=== PATIENT | female | born 1955 | race Caucasian/White ===

== ENCOUNTER 2016-11-06 12:29 | Inpatient (IN) | payer BC, OTHER ==
[2016-11-06] MEDS ORDERED: KETOROLAC 60 MG/2 ML VIAL IM STA (13:26)
[2016-11-06] MEDS ORDERED: DIAZEPAM 5 MG TAB PO STA ×2 (13:27→14:01)
--- NOTE | 2016-11-06 13:39 | ED ---
General Adult HPI - General Source: patient, RN notes reviewed Mode of arrival: wheelchair Limitations: no limitations <Yariel Siegel - Last Filed: 11/06/16 15:32> <Raz Delgado - Last Filed: 11/07/16 01:38> - General Chief complaint: Fall Stated complaint: IHS-Fall Time Seen by Provider: 11/06/16 13:10 - History of Present Illness Initial comments: Patient's a 61-year-old female who presents emergency room today with chief complaint of a fall that occurred just prior to arrival. She does admit that she was opening up a heavy metal door at the local school gym when on the other side there was a stepdown she missed falling down onto the right side. She does admit some pain to the right hip, lower back, and right knee. Patient states was no head injury or loss consciousness. She does admit that she's feeling some spasms coming from the right hip area shooting down her leg. She does admit to a history of herniated disc in her lower back. She denies any saddle anesthesia. Denies any bowel or bladder incontinence retention. Patient denies any recent fever, chills, shortness of breath, chest pain, abdominal pain , nausea or vomiting, numbness or tingling, dysuria or hematuria, constipation or diarrhea, headaches or visual changes, or any other complaints. (Yariel Siegel) - Related Data Home Medications Medication Instructions Recorded Confirmed Cholecalciferol [Vitamin D3] 3,000 tab PO DAILY 10/06/15 11/06/16 DULoxetine HCL [Cymbalta] 60 mg PO DAILY 10/06/15 11/06/16 Fluticasone/Salmeterol [Advair Hfa 2 puff INHALATION RT-BID 10/06/15 11/06/16 230-21 Mcg Inhaler] Levothyroxine Sodium [Synthroid] 175 mcg PO DAILY 10/06/15 11/06/16 Montelukast Sodium [Singulair] 10 mg PO HS 11/06/16 11/06/16 oxyCODONE HCL [OxyCONTIN] 20 mg PO TID 11/06/16 11/06/16 Allergies Allergy/AdvReac Type Severity Reaction Status Date / Time latex Allergy Rash/Hives Verified 11/06/16 15:40 codeine AdvReac Nausea & Verified 11/06/16 15:40 Vomiting Review of Systems ROS Other: All systems not noted in ROS Statement are negative. <Yariel Siegel - Last Filed: 11/06/16 15:32> ROS Other: All systems not noted in ROS Statement are negative. <Raz Delgado Ellis - Last Filed: 11/07/16 01:38> ROS Statement: Those systems with pertinent positive or pertinent negative responses have been documented in the HPI. Past Medical History Past Medical History: Asthma, Fibromyalgia, Sleep Apnea/CPAP/BIPAP, Thyroid Disorder Additional Past Medical History / Comment(s): Lupus, pain clinic, chronic back pain, arthritis History of Any Multi-Drug Resistant Organisms: None Reported Past Surgical History: Section, Hernia Repair, Orthopedic Surgery Additional Past Surgical History / Comment(s): bilateral knee growth surgery Past Psychological History: Anxiety Smoking Status: Former smoker Past Alcohol Use History: Occasional Past Drug Use History: None Reported <Yariel Siegel - Last Filed: 11/06/16 15:32> General Exam Limitations: no limitations <Yariel Siegel - Last Filed: 11/06/16 15:32> <Raz Delgado Ellis - Last Filed: 11/07/16 01:38> - General Exam Comments Initial Comments: General: The patient is awake and alert, in no distress, and does not appear acutely ill. Eye: Pupils are equal, round and reactive to light, extra-ocular movements are intact. No nystagmus. There is normal conjunctiva bilaterally. No signs of icterus. Ears, nose, mouth and throat: There are moist mucous membranes and no oral lesions. Neck: The neck is supple, there is no tenderness or JVD. Cardiovascular: There is a regular rate and rhythm. No murmur, rub or gallop is appreciated. Respiratory: Lungs are clear to auscultation, respirations are non-labored, breath sounds are equal. No wheezes, stridor, rales, or rhonchi. Gastrointestinal: Soft, non-distended, non-tender abdomen without masses or organomegaly noted. There is no rebound or guarding present. No CVA tenderness. Bowel sounds are unremarkable. Musculoskeletal: Small abrasion over the anterior aspect of the right knee. No deep tissue involvement. Shows good range of motion. Mild tenderness of the anterior aspect. Mildly tender over the lateral aspect of the right knee. No tenderness on the right ankle or foot. Mildly tender over the right lateral aspect of the hip. No tenderness midline of thoracic or lumbar spine. No step- offs forms appreciated. Strength 5/5. Sensation intact. Pulses equal bilaterally 2+. Neurological: A&O x 3. CN II-XII intact, There are no obvious motor or sensory deficits. Coordination appears grossly intact. Speech is normal. Skin: Skin is warm and dry and no rashes or lesions are noted. Psychiatric: Cooperative, appropriate mood & affect, normal judgment. (Yariel Siegel) Medical Decision Making <Yariel Siegel - Last Filed: 11/06/16 15:32> - Lab Data Result diagrams: 11/06/16 20:45 11/06/16 16:04 <Raz Delgado - Last Filed: 11/07/16 01:38> - Medical Decision Making X-rays reviewed and does show a femoral neck fracture on the right. Case was discussed with attending physician also patient at bedside. Case was discussed with orthopedic on-call doctor Estiven who will admit the patient and requested to stay nothing by mouth for possible repair tonight. Medicine will be consult for clearance. (Yariel Siegel) 61-year-old female with fall down one step onto her right side. X-ray does reveal a etc. femoral neck fracture. Patient will be admitted to orthopedic surgery for operative repair. (Raz Delgado) Disposition Time of Disposition: 15:33 <Yariel Siegel - Last Filed: 11/06/16 15:32> <Raz Delgado - Last Filed: 11/07/16 01:38> Clinical Impression: Hip fracture Disposition: ADMITTED IP TO THIS HOSP Condition: Good Addendum entered and electronically signed by Yariel Siegel PA-C 11/06/16 16: 18: EKG performed at 1614: A 12-lead EKG was performed and interpreted by me as showing the following: Rate is 75, and rhythm is normal sinus. There are normal QRS complexes and normal R-wave progression. ST segments have no elevation or depression, and CA segments appear normal.
--- NOTE | 2016-11-06 14:43 | XR ---
EXAMINATION TYPE: XR knee limited RT DATE OF EXAM: 11/06/2016 COMPARISON: NONE HISTORY: Pain TECHNIQUE: Two views are submitted. FINDINGS: Joint spaces are preserved. Osseous structures are intact. No acute fracture seen. IMPRESSION: 1. No acute fracture or dislocation.
--- NOTE | 2016-11-06 14:46 | XR ---
EXAMINATION TYPE: XR Hip RT and AP Pelvis DATE OF EXAM: 11/06/2016 COMPARISON: NONE HISTORY: Pain TECHNIQUE: A single AP view of the pelvis is obtained. Two views of the right hip are obtained. FINDINGS: Calcifications in pelvis are likely vascular. Sclerosis involving the left SI joint likel y related to sacroiliitis. Two views of right hip show focal lytic or sclerotic lesion seen in the proximal right femur. The o verlying soft tissue is unremarkable. Nonspherical morphology to the femoral head. Findings are sugg estive of a linear lucency and cortical disruption along the femoral neck. IMPRESSION: 1. Findings are suggestive of a right femoral neck fracture
--- NOTE | 2016-11-06 14:47 | XR ---
EXAM TYPE: LUMBAR SPINE X RAY SERIES COMPARISON: NONE HISTORY: Back pain TECHNIQUE: 4 views are submitted. FINDINGS: Alignment is anatomic. The pedicles are intact. The transverse processes are intact. There is no s pondylolysis or spondylolisthesis. Diffuse osteopenia noted. Facet arthropathy L4-5 and L5-S1. IMPRESSION: 1. No acute process.
[2016-11-06] MEDS ORDERED: SODIUM CHLORIDE 0.9% 1,000 ML IV STA (15:06)
[2016-11-06] MEDS ORDERED: ONDANSETRON 4 MG/2 ML VIAL IVP STA (15:06)
[2016-11-06] MEDS ORDERED: HYDROmorphone 1 MG/ML 1 ML SYRINGE IVP STA (15:06)
[2016-11-06] MEDS ORDERED: NALOXONE 0.4 MG/ML 1 ML VIAL IV PRN ×2 (15:34→19:40)
[2016-11-06] MEDS ORDERED: ONDANSETRON 4 MG/2 ML VIAL IVP PRN (15:34)
[2016-11-06] MEDS ORDERED: SODIUM CHLORIDE 0.9% 1,000 ML IV ONE (15:34)
[2016-11-06] MEDS ORDERED: HYDROmorphone 1 MG/ML 1 ML SYRINGE IV PRN (15:34)
--- NOTE | 2016-11-06 16:14 | XR ---
EXAMINATION TYPE: XR chest 1V DATE OF EXAM: 11/06/2016 COMPARISON: 08/02/2013 HISTORY: 61-year-old female preop clearance for hip fracture. Pain. TECHNIQUE: Single frontal view of the chest is obtained. FINDINGS: Heart is upper limits of normal in size. Aorta and pulmonary vasculature within normal limits. Some s trandy atelectasis in the lower lungs. No consolidation or pleural effusion. IMPRESSION: No acute cardiopulmonary process. Heart at the upper limits of normal in size.
[2016-11-06 16:21] LABS: Basophils % (A) 0 %; CH 27.7; CHCM 33.3; Eosinophils # (A) 0.1 k/uL (0-0.7); Eosinophils % (A) 0 %; HCT 38.9 % (34.0-46.0); HDW 2.37; HGB 13.6 gm/dL (11.4-16.0); Luc # (Auto) 0.11; Luc % (Auto) 1; Lymphocytes # (A) 1.8 k/uL (1.0-4.8); Lymphocytes % (A) 14 %; MCH 29.3 pg (25.0-35.0); MCHC 35.1 g/dL (31.0-37.0); MCV 83.6 fL (80.0-100.0); Mean Platelet Volume 7.5; Monocytes # (A) 0.5 k/uL (0-1.0); Monocytes % (A) 4 %; Neutrophils # (A) 10.2 k/uL (1.3-7.7); Neutrophils % (A) 80 %; RBC 4.65 m/uL (3.80-5.40); RDW 13.7 % (11.5-15.5); WBC 12.7 k/uL (3.8-10.6); WBC (Perox) 12.05
[2016-11-06 16:25] LABS: INR 0.9 (<1.1); Partial Thromboplastin Time 24.4 sec (22.0-30.0); Prothrombin Time 9.6 sec (9.0-12.0)
[2016-11-06 16:27] LABS: ALT 63 U/L (9-52); AST 44 U/L (14-36); Alkaline Phosphatase 140 U/L (38-126); Anion Gap 12 mmol/L; Blood Urea Nitrogen 18 mg/dL (7-17); Calcium 9.6 mg/dL (8.4-10.2); Carbon Dioxide 27 mmol/L (22-30); Chloride 102 mmol/L (98-107); Glucose 111 mg/dL (74-99); Non-African American GFR(MDRD) >60 (>60 ml/min/1.73 sqM); Potassium 4.3 mmol/L (3.5-5.1); Sodium 141 mmol/L (137-145); Total Bilirubin 0.4 mg/dL (0.2-1.3); Total Protein 7.3 g/dL (6.3-8.2)
[2016-11-06] MEDS ORDERED: MAGNESIUM HYDROXIDE 2,400 MG/10 ML CUP PO PRN (16:44)
[2016-11-06] MEDS ORDERED: DIAZEPAM 5 MG TAB PO PRN (16:44)
[2016-11-06] MEDS ORDERED: HYDROmorphone 1 MG/ML 1 ML SYRINGE IVP PRN ×2 (16:44)
[2016-11-06] MEDS ORDERED: TEMAZEPAM 15 MG CAP PO PRN (16:44)
[2016-11-06] MEDS ORDERED: hydrOXYzine PAMOATE 25 MG CAP PO PRN (16:44)
--- NOTE | 2016-11-06 16:57 | P.HPOR ---
History of Present Illness H&P Date: 11/06/16 Chief Complaint: Right hip fracture Patient presented to the ER this afternoon after a fall in the gymnasium at school in [place]. She had misstepped and fell to her right side. She developed right hip pain and difficulty with ambulating after her fall. X-rays in the emergency department showed a minimal to nondisplaced subcapital femoral neck fracture on the right. She has pain in the right hip as expected but no other new acute complaints. She has a history of back problems where she was treated through pain management and a history of thyroid disorder which is treated for but has no other met past medical history that she relates. She is currently denying new numbness or tingling, calf pain, fever, chills, chest pain, shortness breath, nausea, vomiting, dizziness, headaches, loss of consciousness , slurred speech or other. Review of Systems All systems: negative Constitutional: Denies chills, Denies fever Eyes: denies blurred vision, denies pain Ears, nose, mouth and throat: Denies headache, Denies sore throat Cardiovascular: Denies chest pain, Denies shortness of breath Respiratory: Denies cough Gastrointestinal: Denies abdominal pain, Denies diarrhea, Denies nausea, Denies vomiting Genitourinary: Denies dysuria, Denies hematuria Musculoskeletal: Denies myalgias Integumentary: Denies pruritus, Denies rash Neurological: Denies numbness, Denies weakness Psychiatric: Denies anxiety, Denies depression Endocrine: Denies fatigue, Denies weight change Past Medical History Past Medical History: Asthma, Fibromyalgia, Sleep Apnea/CPAP/BIPAP, Thyroid Disorder Additional Past Medical History / Comment(s): Lupus, pain clinic, chronic back pain, arthritis History of Any Multi-Drug Resistant Organisms: None Reported Past Surgical History: Section, Hernia Repair, Orthopedic Surgery Additional Past Surgical History / Comment(s): bilateral knee growth surgery Past Psychological History: Anxiety Smoking Status: Former smoker Past Alcohol Use History: Occasional Past Drug Use History: None Reported Medications and Allergies Home Medications Medication Instructions Recorded Confirmed Type Cholecalciferol [Vitamin D3] 3,000 tab PO DAILY 10/06/15 11/06/16 History DULoxetine HCL [Cymbalta] 60 mg PO DAILY 10/06/15 11/06/16 History Fluticasone/Salmeterol [Advair Hfa 2 puff INHALATION RT-BID 10/06/15 11/06/16 History 230-21 Mcg Inhaler] Levothyroxine Sodium [Synthroid] 175 mcg PO DAILY 10/06/15 11/06/16 History Montelukast Sodium [Singulair] 10 mg PO HS 11/06/16 11/06/16 History oxyCODONE HCL [OxyCONTIN] 20 mg PO TID 11/06/16 11/06/16 History Allergies Allergy/AdvReac Type Severity Reaction Status Date / Time latex Allergy Rash/Hives Verified 11/06/16 15:40 codeine AdvReac Nausea & Verified 11/06/16 15:40 Vomiting Physical Examination Inspection of the right lower extremity is benign. There is no open wounds or lacerations. There is no erythema. Neurovascular status is intact with motor and sensation throughout the right lower extremity. Range of motion of right hip is not tested due to the fracture. Calf is soft and nontender. 2+ dorsalis pedis pulses present as well as less than 2 second cap refill. Results - Labs Labs: Abnormal Lab Results - Last 24 Hours (Table) 11/06/16 11/06/16 Range/Units 16:04 16:04 WBC 12.7 H (3.8-10.6) k/uL Neutrophils # 10.2 H (1.3-7.7) k/uL BUN 18 H (7-17) mg/dL Glucose 111 H (74-99) mg/dL AST 44 H (14-36) U/L ALT 63 H (9-52) U/L Alkaline Phosphatase 140 H (38-126) U/L H & H 11/06/16 Range/Units 16:04 Hgb 13.6 (11.4-16.0) gm/dL Hct 38.9 (34.0-46.0) % Coagulation 11/06/16 Range/Units 16:04 INR 0.9 (<1.1) Result Diagrams: 11/06/16 16:04 11/06/16 16:04 - Diagnostic results Hip x-ray: report reviewed, image reviewed (Nondisplaced subcapital femoral neck fracture on right) Assessment and Plan (1) Hip fracture Narrative/Plan: This patient has been reviewed with Dr. Jean-Baptiste. He has seen the x-rays. He has recommended proceeding with surgical intervention including percutaneous pinning through the femoral neck. The risks, possible complications and benefits have been reviewed with the patient. She desires to proceed. She has been nothing by mouth. Procedure and consent has been ordered. Chest x-ray is stable. She has no cardiac history nor cerebrovascular disease history. EKG has been ordered. Labs are within acceptable ranges. She appears medically stable to proceed with surgical intervention. Status: Acute Time with Patient: Less than 30
[2016-11-06] MEDS ORDERED: IV FLUID CONTINUATION 1,000 ML IV ONE (17:10)
[2016-11-06] MEDS ORDERED: ONDANSETRON 4 MG/2 ML VIAL IVP ONE (17:28)
[2016-11-06] MEDS ORDERED: DEXAMETHASONE SOD PHOSPHATE 10 MG/ML 1 ML VIAL IV ONE (17:29)
[2016-11-06] MEDS ORDERED: KETAMINE 10 MG/ML 20 ML VIAL ONE (17:54)
[2016-11-06] MEDS ORDERED: fentaNYL (PF) 50 MCG/ML 2 ML AMP ONE (17:54)
[2016-11-06] MEDS ORDERED: PROPOFOL 10 MG/ML 20 ML VIAL IV ONE (17:54)
[2016-11-06] MEDS ORDERED: MIDAZOLAM 2 MG/2 ML VIAL ONE (17:54)
[2016-11-06] MEDS: ceFAZolin 2 GM in SODIUM CHLORIDE 0.9% 100 ML IVPB SCH (18:01)
[2016-11-06] MEDS ORDERED: LACTATED RINGERS 1,000 ML IV ONE (19:08)
--- NOTE | 2016-11-06 19:54 | P.OP ---
Date of Procedure: 11/06/16 Preoperative Diagnosis: 1. Right nondisplaced subcapital femoral neck fracture 2. Chronic pain 3. BMI of 32.9 4. History of prior fracture within the last year Postoperative Diagnosis: Same Procedure(s) Performed: In situ screw fixation of nondisplaced right femoral neck fracture Implants: 6.5 mm partially-threaded cannulated screws Anesthesia: spinal Surgeon: Jesus Jean-Baptiste Estimated Blood Loss (ml): 50 IV fluids (ml): 1,000 Pathology: none sent Condition: stable Disposition: PACU Indications for Procedure: The patient is a 61-year-old female with a medical history significant for chronic pain. Earlier today she sustained a fall resulting in right hip and groin pain. She is unable to get up and walk. She was brought to the emergency department for x-rays showed a nondisplaced subcapital femoral neck fracture. She was admitted under my care. She was seen and cleared for surgery by internal medicine. I met with the patient preoperatively and had a lengthy discussion on treatment. Due to the patient's age, presenting history, and minimal displacement on x-rays I recommended in situ stabilization with cannulated screws. We discussed the potential risks and complication of surgery including but not limited to risk of anesthesia, risk of superficial infection, risk of deep infection, risk of delayed wound healing, risk of wound necrosis, risk of intraoperative fracture, risk of postoperative sub- trochanteric fracture, risk of collapse of the fracture, risk of displacement of the fracture, risk of need for further surgery including a total hip replacement, risk of traction related injury from the fracture table including nerve damage, risk of difficulty ambulating, risk of inability to regain preinjury level of function, risk of generalized dissatisfaction with surgery, risk of postoperative medical complication including DVT, PE, fatal PE, acute coronary event, stroke, pneumonia, pressure ulcer, urinary tract infection, and even . The patient understands the potential risks and complications and that surgery can be unpredictable and that there are other less common complications that may occur. She voiced her understanding of this and provided verbal and written consent to go forward with surgery. Operative Findings: Description of Procedure: The patient was identified in preoperative holding and the correct right leg was marked with my initials. I reviewed the consent form with the patient answered all of her questions. She was then brought back to the operating room. Once in the operating room a spinal anesthetic was administered. She was then transferred from the rbally onto the operating room table. She was positioned on a fracture table. The left leg was placed in a leg wiggins and secured with foam in the popliteal fossa to avoid pressure over the neurovascular bundle. The right leg was placed in a boot. A perineal post was placed. The right leg was then prepped and draped in the standard sterile fashion. Preoperative antibiotics were administered. Prior to starting surgery timeout was performed identifying the correct patient, operative extremity, and procedure. A 5 cm longitudinal incision centered over the lateral aspect of the proximal femur starting at the lesser trochanter and extending proximally was marked out with a skin marker. Skin incision was made to 15 blade scalpel. Dissection was carried down carefully to the subcutaneous tissue to the IT band. The IT band was incised longitudinally in line with the skin incision. The lateral aspect of the femur was felt within the wound. A K wire was then centered on the lateral aspect of the femur inferiorly in the neck and driven up into the femoral head. The position of the wire was verified in both AP and lateral fluoroscopic planes. 2 superior K wires were then placed anteriorly and posteriorly and the femoral neck into the superior aspect of the femoral head. A cannulated depth gauge was used to measure the lengths of all screws. A cannulated drill bit was used to perforate the lateral cortex. The inferior partially threaded screw was placed first. The superior screws were then placed. All screws were then sequentially tightened by hand. The K wires were removed and final fluoroscopic x-rays were taken. All of the screws appeared to be in satisfactory position within the head of the femur. The threads of the screws appeared to be past the fracture site. The wound was then copiously irrigated with sterile saline. The IT band was closed with a running 0 Vicryl stitch. The deep subcutaneous layer was closed with interrupted 0 Vicryl. The superficial subcu was reapproximated using 2-0 Vicryl. The skin was closed with gordon. I verified that all instrument, sponge, and sharp counts were correct. A sterile dressing consisting of Betadine soaked Adaptic and 4 x 4's were applied over the wound and secured with medium Tegaderm. The drapes were then taken down. The patient was carefully taken out of the fracture table and transferred onto a gurney and brought to PACU having found the procedure well. Plan: The patient is going to be admitted to the hospital. She'll receive 2 doses of postoperative antibiotics. She'll be treated with Lovenox 40 mg daily for 4 weeks for DVT prophylaxis. Due to her prior fragility fracture I will check a 25-hydroxy vitamin D level. She'll need a dressing change postoperative day #2. She'll remain strictly nonweightbearing on her right leg for 6 weeks.
[2016-11-06] MEDS ORDERED: HYDROmorphone 1 MG/ML 1 ML SYRINGE IVP ONE ×2 (20:10→20:15)
[2016-11-06] MEDS: oxyCODONE ER 10 MG TAB.ER.12H PO SCH (21:12)
[2016-11-06] MEDS: CALCIUM CARBONATE 500 MG CHEWABLE PO SCH (21:13)
[2016-11-06 21:16] LABS: Basophils % (A) 0 %; CH 27.5; CHCM 32.5; Eosinophils % (A) 0 %; HCT 36.4 % (34.0-46.0); HDW 2.32; HGB 12.3 gm/dL (11.4-16.0); Luc # (Auto) 0.07; Luc % (Auto) 1; Lymphocytes # (A) 1.1 k/uL (1.0-4.8); Lymphocytes % (A) 10 %; MCH 28.7 pg (25.0-35.0); MCHC 33.8 g/dL (31.0-37.0); MCV 84.8 fL (80.0-100.0); Mean Platelet Volume 7.3; Monocytes # (A) 0.2 k/uL (0-1.0); Monocytes % (A) 2 %; Neutrophils # (A) 9.2 k/uL (1.3-7.7); Neutrophils % (A) 87 %; RBC 4.29 m/uL (3.80-5.40); RDW 13.7 % (11.5-15.5); WBC 10.6 k/uL (3.8-10.6)
[2016-11-06] MEDS: SENNOSIDES-DOCUSATE SODIUM 1 EACH TAB PO SCH (21:21)
[2016-11-07] MEDS: ceFAZolin 2 GM in SODIUM CHLORIDE 0.9% 100 ML IVPB SCH ×4 (00:57→08:42)
[2016-11-07] MEDS: LACTATED RINGERS 1,000 ML IV SCH ×4 (02:01→20:17)
[2016-11-07] MEDS: oxyCODONE ER 10 MG TAB.ER.12H PO SCH ×2 (07:13→07:21)
[2016-11-07] MEDS ORDERED: oxyCODONE ER 10 MG TAB.ER.12H PO ONE (07:35)
[2016-11-07] MEDS ORDERED: oxyCODONE-APAP 5-325MG 1 EACH TAB PO PRN (07:36)
--- NOTE | 2016-11-07 07:58 | XR ---
Limited right hip HISTORY: Open reduction internal fixation 2 intraoperative images document the procedure
[2016-11-07] MEDS: DULoxetine HCL 60 MG CAPSULE.DR PO SCH (08:33)
[2016-11-07] MEDS: oxyCODONE-APAP 5-325MG 1 EACH TAB PO PRN ×3 (09:06→22:39)
--- NOTE | 2016-11-07 09:19 | P.PN ---
Subjective Principal diagnosis: Right femur fracture Patient is a pleasant 61-year-old female is postop day #1 from percutaneous pinning and fixation of right femoral neck fracture. She has pain at the surgical site as expected but denies any new complaints. She denies new numbness, tingling, calf pain, fever, chills, chest pain or shortness of breath. Objective - Vital Signs Vital signs: Vital Signs Temp 98.4 F 11/07/16 07:30 Pulse 68 11/07/16 07:30 Resp 16 11/07/16 07:30 BP 159/81 11/07/16 07:30 Pulse Ox 93 L 11/07/16 07:30 Intake & Output 11/06/16 11/07/16 11/07/16 18:59 06:59 18:59 Intake Total 1100 1940 318 Output Total 450 950 Balance 650 990 318 Weight 95.254 kg 95.254 kg Intake: IV 1100 500 Intake, IV Titration 1200 Amount Lactated Ringers 1,000 ml 400 As IV .[facility] ONE Rx#: [id number] Sodium Chloride 0.9% 1, 800 000 ml @ 100 mls/hr IV . Q10H STA Rx#:[id number] Oral 240 318 Output: Urine 400 950 Estimated Blood Loss 50 Other: Voiding Method Indwelling Catheter - Exam Inspection of the right lower extremity shows benign surgical wound. There is no active bleeding or drainage. Neurovascular status intact throughout the right lower extremity with motor and sensation. Calf is soft and nontender. 2 + dorsalis pedis pulses and less than 2 second cap refill present. - Constitutional General appearance: Present: no acute distress - Psychiatric Psychiatric: Present: A&O x's 3, appropriate affect, intact judgment & insight - Labs CBC & Chem 7: 11/06/16 20:45 11/06/16 16:04 Labs: Abnormal Lab Results - Last 24 Hours (Table) 11/06/16 11/06/16 11/06/16 Range/Units 16:04 16:04 20:45 WBC 12.7 H (3.8-10.6) k/uL Neutrophils # 10.2 H 9.2 H (1.3-7.7) k/uL BUN 18 H (7-17) mg/dL Glucose 111 H (74-99) mg/dL AST 44 H (14-36) U/L ALT 63 H (9-52) U/L Alkaline Phosphatase 140 H (38-126) U/L Assessment and Plan (1) Hip fracture Narrative/Plan: She will continue with routine postop orthopedic protocol including pain management, wound care, physical therapy, DVT prophylaxis and medical management. She has resumed her home medication doses with pain medication where she is in a pain contract. Expect that she will discharge to home in the next 1-2 days. Status: Acute Time with Patient: Less than 30
[2016-11-07] MEDS: MULTIVITAMINS, THERA 1 EACH TAB PO SCH (10:26)
[2016-11-07] MEDS: CHOLECALCIFEROL 1,000 UNIT TAB PO SCH (10:26)
[2016-11-07] MEDS: ENOXAPARIN 40 MG/0.4 ML SYRINGE SQ SCH (10:26)
[2016-11-07] MEDS: LEVOTHYROXINE 75 MCG TAB PO SCH (10:26)
[2016-11-07] MEDS: LEVOTHYROXINE 100 MCG TAB PO SCH (10:26)
[2016-11-07] MEDS: CALCIUM CARBONATE 500 MG CHEWABLE PO SCH ×3 (10:26→22:38)
--- NOTE | 2016-11-07 11:09 | FL ---
Fluoroscopy HISTORY: Fracture 2 minutes 9 seconds fluoroscopy time supplied to the referring clinician. 2 intraoperative C-arm familia ges document the procedure. See dictated report from orthopedic surgery.
--- NOTE | 2016-11-07 12:09 | P.CONS ---
History of Present Illness - Reason for Consult Recommendations regarding added medications and preoperative consultation m - History of Present Illness The patient is a 61-year-old female with a medical history significant for chronic pain. Earlier today she sustained a fall resulting in right hip and groin pain. She is unable to get up and walk. She was brought to the emergency department for x-rays showed a nondisplaced subcapital femoral neck fracture. And underwent surgical correction and patient is clinically doing well did pass gas did not move her bowels. This excellent underwent surgery. Patient denied any fever, chills, nausea, vomiting, abdominal pain, dysuria. Review of Systems REVIEW OF SYSTEMS: CONSTITUTIONAL: No fever, no malaise, no fatigue. HEENT: No recent visual problems or hearing problems. Denied any sore throat. CARDIOVASCULAR: No chest pain, orthopnea, PND, no palpitations, no syncope. PULMONARY: No shortness of breath, no cough, no hemoptysis. GASTROINTESTINAL: No diarrhea, no nausea, no vomiting, no abdominal pain. Normoactive bowel sounds. NEUROLOGICAL: No headaches, no weakness, no numbness. HEMATOLOGICAL: Denies any bleeding or petechiae. GENITOURINARY: Denies any burning micturition, frequency, or urgency. MUSCULOSKELETAL/RHEUMATOLOGICAL: Denies any joint pain, swelling, or any muscle pain. ENDOCRINE: Denies any polyuria or polydipsia. The rest of the 14-point review of systems is negative. Past Medical History Past Medical History: Asthma, Fibromyalgia, Sleep Apnea/CPAP/BIPAP, Thyroid Disorder Additional Past Medical History / Comment(s): Lupus, pain clinic, chronic back pain, arthritis History of Any Multi-Drug Resistant Organisms: None Reported Past Surgical History: Section, Hernia Repair, Orthopedic Surgery Additional Past Surgical History / Comment(s): bilateral knee growth surgery Past Anesthesia/Blood Transfusion Reactions: No Reported Reaction Past Psychological History: Anxiety Smoking Status: Former smoker Past Alcohol Use History: Occasional Past Drug Use History: None Reported Medications and Allergies Home Medications Medication Instructions Recorded Confirmed Type Cholecalciferol [Vitamin D3] 3,000 tab PO DAILY 10/06/15 11/06/16 History DULoxetine HCL [Cymbalta] 60 mg PO DAILY 10/06/15 11/06/16 History Fluticasone/Salmeterol [Advair Hfa 2 puff INHALATION RT-BID 10/06/15 11/06/16 History 230-21 Mcg Inhaler] Levothyroxine Sodium [Synthroid] 175 mcg PO DAILY 10/06/15 11/06/16 History Montelukast Sodium [Singulair] 10 mg PO HS 11/06/16 11/06/16 History oxyCODONE HCL [OxyCONTIN] 20 mg PO TID 11/06/16 11/06/16 History Allergies Allergy/AdvReac Type Severity Reaction Status Date / Time latex Allergy Rash/Hives Verified 11/06/16 15:40 codeine AdvReac Nausea & Verified 11/06/16 15:40 Vomiting Physical Exam Vitals: Vital Signs Temp Pulse Pulse Pulse Resp BP BP 11/07/16 07:30 98.4 F 68 16 159/81 11/07/16 01:22 97.3 F L 62 16 124/68 11/06/16 22:15 65 16 123/73 11/06/16 22:00 64 16 123/71 11/06/16 21:45 77 16 135/77 11/06/16 21:30 66 16 123/76 11/06/16 21:15 63 16 140/74 11/06/16 21:00 64 16 137/73 11/06/16 20:45 65 16 123/79 11/06/16 20:30 97.1 F L 62 16 138/71 11/06/16 20:19 67 16 136/70 11/06/16 20:04 69 18 137/69 11/06/16 19:50 63 16 140/75 11/06/16 19:37 61 16 142/77 11/06/16 19:22 97.5 F L 61 18 140/73 11/06/16 17:21 98.6 F 77 16 155/70 11/06/16 16:34 98.4 F 80 16 146/69 11/06/16 14:48 18 11/06/16 12:46 98.7 F 81 16 164/84 Pulse Ox 11/07/16 07:30 93 L 11/07/16 01:22 98 11/06/16 22:15 96 11/06/16 22:00 94 L 11/06/16 21:45 91 L 11/06/16 21:30 95 11/06/16 21:15 95 11/06/16 21:00 95 11/06/16 20:45 95 11/06/16 20:30 96 11/06/16 20:19 96 11/06/16 20:04 96 11/06/16 19:50 97 11/06/16 19:37 97 11/06/16 19:22 93 L 11/06/16 17:21 93 L 11/06/16 16:34 94 L 11/06/16 14:48 11/06/16 12:46 95 Intake and Output 11/06/16 11/07/16 11/07/16 22:59 06:59 14:59 Intake Total 2240 800 318 Output Total 650 750 800 Balance 1590 50 -482 Intake: IV 1600 Intake, IV Titration 400 800 Amount Lactated Ringers 1,000 ml 400 As IV .[employer] Rx#: [id number] Sodium Chloride 0.9% 1, 800 000 ml @ 100 mls/hr IV . Q10H STA Rx#:[id number] Oral 240 318 Output: Urine 600 750 800 Uretheral (Simmons) 800 Estimated Blood Loss 50 Other: Voiding Method Indwelling Catheter Indwelling Catheter Indwelling Catheter Weight 95.254 kg 95.254 kg PHYSICAL EXAMINATION: GENERAL: The patient is alert and oriented x3, not in any acute distress. Well developed, well nourished. HEENT: Pupils are round and equally reacting to light. EOMI. No scleral icterus. No conjunctival pallor. Normocephalic, atraumatic. No pharyngeal erythema. No thyromegaly. CARDIOVASCULAR: S1 and S2 present. No murmurs, rubs, or gallops. PULMONARY: Chest is clear to auscultation, no wheezing or crackles. ABDOMEN: Soft, nontender, nondistended, normoactive bowel sounds. No palpable organomegaly. MUSCULOSKELETAL: Deferred to orthopedic surgery EXTREMITIES: No cyanosis, clubbing, or pedal edema. NEUROLOGICAL: Gross neurological examination did not reveal any focal deficits. SKIN: No rashes. Results CBC & Chem 7: 11/06/16 20:45 11/06/16 16:04 Labs: Abnormal Lab Results - Last 24 Hours (Table) 11/06/16 11/06/16 11/06/16 Range/Units 16:04 16:04 20:45 WBC 12.7 H (3.8-10.6) k/uL Neutrophils # 10.2 H 9.2 H (1.3-7.7) k/uL BUN 18 H (7-17) mg/dL Glucose 111 H (74-99) mg/dL AST 44 H (14-36) U/L ALT 63 H (9-52) U/L Alkaline Phosphatase 140 H (38-126) U/L Assessment and Plan Plan: 1 right nondisplaced subcapital femoral neck fracture, status post surgical correction: Patient is clinically doing well and is passing gas her pain is better controlled now. DVT prophylaxis and pain management as per primary service. #2 leukocytosis without any signs or symptoms of infection no further evaluation is needed." This leukocytosis is secondary to fall and reactive in nature. 3 asthma without any acute exacerbation continue with inhalational steroids. #4 hypothyroidism 5 depression For above-mentioned chronic medical problems (and continue her home medications. Will follow the patient on as-needed basis
[2016-11-07] MEDS: HYDROmorphone 1 MG/ML 1 ML SYRINGE IVP PRN ×2 (12:24→15:44)
[2016-11-07] MEDS ORDERED: SYMBICORT 160-4.5 MCG INHALER INHALATION SCH (20:00)
[2016-11-07] MEDS: SENNOSIDES-DOCUSATE SODIUM 1 EACH TAB PO SCH (20:18)
[2016-11-07] MEDS: oxyCODONE ER 20 MG TAB.ER.12H PO SCH (20:21)
[2016-11-07] MEDS ORDERED: MONTELUKAST 10 MG TAB PO SCH (21:00)
[2016-11-07] MEDS ORDERED: ERGOCALCIFEROL 50,000 UNIT CAP PO SCH (22:00)
[2016-11-08] MEDS: oxyCODONE-APAP 5-325MG 1 EACH TAB PO PRN ×3 (05:42→14:10)
[2016-11-08 07:23] LABS: Basophils # (A) 0.1 k/uL (0-0.2); Basophils % (A) 1 %; CH 27.7; CHCM 32.4; Eosinophils # (A) 0.1 k/uL (0-0.7); Eosinophils % (A) 2 %; HCT 36.9 % (34.0-46.0); HDW 2.35; HGB 12.3 gm/dL (11.4-16.0); Luc # (Auto) 0.13; Luc % (Auto) 2; Lymphocytes # (A) 2.5 k/uL (1.0-4.8); Lymphocytes % (A) 32 %; MCH 28.7 pg (25.0-35.0); MCHC 33.4 g/dL (31.0-37.0); MCV 86.1 fL (80.0-100.0); Mean Platelet Volume 7.4; Monocytes # (A) 0.3 k/uL (0-1.0); Monocytes % (A) 4 %; Neutrophils # (A) 4.7 k/uL (1.3-7.7); Neutrophils % (A) 60 %; RBC 4.28 m/uL (3.80-5.40); RDW 13.9 % (11.5-15.5); WBC 7.8 k/uL (3.8-10.6); WBC (Perox) 8.37
[2016-11-08] MEDS: CHOLECALCIFEROL 1,000 UNIT TAB PO SCH (07:57)
[2016-11-08] MEDS: LEVOTHYROXINE 100 MCG TAB PO SCH (07:57)
[2016-11-08] MEDS: CALCIUM CARBONATE 500 MG CHEWABLE PO SCH (07:57)
[2016-11-08] MEDS: LEVOTHYROXINE 75 MCG TAB PO SCH (07:57)
[2016-11-08] MEDS: DULoxetine HCL 60 MG CAPSULE.DR PO SCH (07:57)
[2016-11-08] MEDS: oxyCODONE ER 20 MG TAB.ER.12H PO SCH (07:57)
[2016-11-08] MEDS: MULTIVITAMINS, THERA 1 EACH TAB PO SCH (07:58)
[2016-11-08] MEDS: ENOXAPARIN 40 MG/0.4 ML SYRINGE SQ SCH (07:58)
[2016-11-08 08:34] VITALS: BP 144/75; PULSE 73; RESP 18; TEMP 96.3
--- NOTE | 2016-11-08 08:49 | P.PN ---
Subjective Patient is doing well this morning. She has complained of only minor discomfort in her right leg and hip. She says it still feels like she is having muscle spasms from her fall. In feels like it's baseline level. Objective - Vital Signs Vital signs: Vital Signs Temp 96.3 F L 11/08/16 07:00 Pulse 73 11/08/16 07:00 Resp 18 11/08/16 07:00 BP 144/75 11/08/16 07:00 Pulse Ox 94 L 11/08/16 07:00 Intake & Output 11/07/16 11/08/16 11/08/16 18:59 06:59 18:59 Intake Total 618 750 220 Output Total 800 550 Balance -182 200 220 Intake: Intake, IV Titration 300 Amount Lactated Ringers 1,000 ml 300 @ 100 mls/hr IV .Q10H JOAQUÍN Rx#:[id number] Oral 318 750 220 Output: Urine 800 550 Uretheral (Simmons) 800 Other: Voiding Method Toilet # Voids 2 - Exam Him the patient is sitting up comfortably in a chair at bedside. She is no apparent distress and is able to answer questions. A focused examination of the right lower leg was conducted. On inspection of the patient's right hip there is a healing incision over the lateral aspect of the hip with gordon in place. There is no bleeding or drainage. The thigh is soft. Her calf is nontender. She is able to actively plantarflex and dorsiflex her ankles and toes. She has no pain with passive range of motion of the toes. Sensation is intact to light touch throughout the right foot. She has a palpable dorsalis pedis pulse. - Labs CBC & Chem 7: 11/08/16 06:58 11/06/16 16:04 Labs: Abnormal Lab Results - Last 24 Hours (Table) 11/06/16 Range/Units 16:04 Vitamin D 25-Hydroxy 27.3 L (30.0-100.0) ng/mL Assessment and Plan Plan: Postoperative day #2 status post in situ cannulated screw fixation of nondisplaced subcapital femoral neck fracture 1. Continue strict nonweightbearing right lower extremity 6 weeks with crutches or walker 2. DVT prophylaxis with Lovenox 40 mg daily 4 weeks 3. Pain control with OxyContin and Percocet with follow-up this with her pain specialist 4. A dressing changes to right hip wound 5. Bone health with calcium carbonate 500 mg 3 times a day, vitamin D3 2000 units daily and vitamin D 2 50,000 units every 72 hours 6 weeks 6. Therapy for mobilization and gait training 7. Anticipate discharge home later today
--- NOTE | 2016-11-08 09:49 | P.DS ---
Providers Date of admission: 11/06/16 15:41 Attending physician: Jesus Jean-Baptiste Consults: 11/06/16 15:34 Consult Physician Stat Consulting Provider: Elia Talavera Consult Reason/Comments: Medical clearance Do you want consulting provider notified?: Yes Primary care physician: Sofiya Berry [facility] Course: This is a 61-year-old female with known history of right minimal to nondisplaced subcapital femoral neck fracture. The patient was admitted through the for this problem on 11/06/2016. After discussion and consideration patient consented to proceed with in situ screw fixation of nondisplaced right femoral neck fracture. The patient is seen preoperatively by Dr. Jean-Baptiste and cleared for surgery. Patient is admitted to [facility] on 11/06/2016 for in situ screw fixation of nondisplaced right femoral neck fracture. The procedures performed without complication or sequelae. The patient is doing well postoperatively. Labs and vital signs are stable on day of discharge. On day of discharge patient's hip incision is healing well. [place] are intact. There is no drainage. Soft tissues around the incision are soft. Patient has full foot and ankle motion without difficulty or pain. Neurovascular status to the right lower extremity is intact. Patient is discharged home in good condition. Please see med rec for accurate list of home medications. Patient Condition at Discharge: Good Plan - Discharge Summary New Discharge Prescriptions: New oxyCODONE HCL/ACETAMINOPHEN [Percocet 10-325 mg] 1 tab PO Q6HR PRN #20 tab PRN Reason: Pain Enoxaparin [Lovenox] 40 mg SQ DAILY #28 syringe Ergocalciferol (Vitamin D2) [Vitamin D2] 50,000 unit PO WEEKLY #20 capsule Cholecalciferol [Vitamin D3] 2,000 unit PO DAILY #60 tablet Calcium Carbonate [Tums] 500 mg PO TID #60 chewable Docusate [Colace] 100 mg PO BID #30 capsule No Action Levothyroxine Sodium [Synthroid] 175 mcg PO DAILY Fluticasone/Salmeterol [Advair Hfa 230-21 Mcg Inhaler] 2 puff INHALATION RT- BID DULoxetine HCL [Cymbalta] 60 mg PO DAILY Cholecalciferol [Vitamin D3] 3,000 tab PO DAILY oxyCODONE HCL [OxyCONTIN] 20 mg PO TID Montelukast Sodium [Singulair] 10 mg PO HS Discharge Medication List Cholecalciferol [Vitamin D3] 3,000 tab PO DAILY 10/06/15 [History] DULoxetine HCL [Cymbalta] 60 mg PO DAILY 10/06/15 [History] Fluticasone/Salmeterol [Advair Hfa 230-21 Mcg Inhaler] 2 puff INHALATION RT-BID 10/06/15 [History] Levothyroxine Sodium [Synthroid] 175 mcg PO DAILY 10/06/15 [History] Montelukast Sodium [Singulair] 10 mg PO HS 11/06/16 [History] oxyCODONE HCL [OxyCONTIN] 20 mg PO TID 11/06/16 [History] Calcium Carbonate [Tums] 500 mg PO TID #60 chewable 11/08/16 [Rx] Cholecalciferol [Vitamin D3] 2,000 unit PO DAILY #60 tablet 11/08/16 [Rx] Docusate [Colace] 100 mg PO BID #30 capsule 11/08/16 [Rx] Enoxaparin [Lovenox] 40 mg SQ DAILY #28 syringe 11/08/16 [Rx] Ergocalciferol (Vitamin D2) [Vitamin D2] 50,000 unit PO WEEKLY #20 capsule 11/08 [Rx] oxyCODONE HCL/ACETAMINOPHEN [Percocet 10-325 mg] 1 tab PO Q6HR PRN #20 tab 11/08 [Rx] Follow up Appointment(s)/Referral(s): Sofiya Cochran MD [Primary Care Provider] - 1-2 days Jesus Jean-Baptiste MD [Medical Doctor] - 2 Weeks Activity/Diet/Wound Care/Special Instructions: 1. Strict non-weight bearing on your operative leg. 2. Use crutches or a walker to ambulate. 3. Daily dressing changes - apply gauze and paper tape or band aids over incision 4. You can shower, but do not soak your incision - pat incision dry and keep covered. 5. Take pain medications as prescribed. 6. You will be given a prescription for lovenox to take as a blood thinner for 4 -weeks after surgery. 7. Take calcium and vitamin D supplements. 8. Follow-up in 2-weeks for x-rays and removal of gordon. Discharge Disposition: HOME SELF-CARE
== END 2016-11-08 14:25 | disposition home or self-care (01) | DRG 482 ==
LOC: EC 12:29 → 3SUR 15:41
PROVIDERS: ADMIT Orthopaedic Surgery; ATTEND Orthopaedic Surgery
PROC: 0QS634Z Reposition Right Upper Femur with Internal Fixation Device, Percutaneous Approach (ICD-10-PCS; principal; 2016-11-06 17:00)
DX: S72.011A Unspecified intracapsular fracture of right femur, initial encounter for closed fracture (principal); F32.9 Major depressive disorder, single episode, unspecified; S80.211A Abrasion, right knee, initial encounter; D72.828 Other elevated white blood cell count; R26.2 Difficulty in walking, not elsewhere classified; E03.9 Hypothyroidism, unspecified; M19.90 Unspecified osteoarthritis, unspecified site; M54.9 Dorsalgia, unspecified; F41.9 Anxiety disorder, unspecified; G47.33 Obstructive sleep apnea (adult) (pediatric); K21.9 Gastro-esophageal reflux disease without esophagitis; M79.7 Fibromyalgia; J45.909 Unspecified asthma, uncomplicated; G89.29 Other chronic pain; Z88.5 Allergy status to narcotic agent; Z87.81 Personal history of (healed) traumatic fracture; Z79.899 Other long term (current) drug therapy; Z87.891 Personal history of nicotine dependence; Z91.040 Latex allergy status; Z79.891 Long term (current) use of opiate analgesic; Z79.51 Long term (current) use of inhaled steroids; Z86.2 Personal history of diseases of the blood and blood-forming organs and certain disorders involving the immune mechanism; W10.8XXA Fall (on) (from) other stairs and steps, initial encounter; Y92.219 Unspecified school as the place of occurrence of the external cause
CPT/HCPCS: 71010; 72100; 73501; 73502; 80053; 82306; 85025; 85610; 85730; 86850; 86900; 86901; 93005; 96372; 96374; 99285

== ENCOUNTER → 2016-12-23 | Outpatient (CLI) | payer BC | END | disposition home or self-care (01) | LOC: LABWHC1 13:10 | PROVIDERS: ATTEND Orthopaedic Surgery | DX: E55.9 Vitamin D deficiency, unspecified (principal) | CPT/HCPCS: 36415; 82306 ==

== ENCOUNTER 2019-01-21 07:40 | Day surgery (SDC) | payer BC ==
[2019-01-20 11:00] VITALS: BMI 36.3
[~2019-01-21 07:40] MED LIST: LACTATED RINGERS 1,000 ML IV SCH
[2019-01-21] MEDS ORDERED: LIDOCAINE 1% 20 ML VIAL (10MG/ML) FOR IV START INTRADERMA ONE (08:22)
[2019-01-21] MEDS ORDERED: PROPOFOL 10 MG/ML 20 ML VIAL IV ONE (09:13)
[2019-01-21] MEDS ORDERED: GLUCAGON 1 MG/ML VIAL ONE (09:13)
[2019-01-21 09:21] VITALS: RESP 16; TEMP 98.4
--- NOTE | 2019-01-21 09:21 | P.GSHP ---
History of Present Illness H&P Date: 01/21/19 Chief Complaint: Screening colonoscopy This a 63-year-old female who presents today for screening colonoscopy. Patient denies a significant GI complaints.. Past Medical History Past Medical History: Asthma, Fibromyalgia, GERD/Reflux, Hyperlipidemia, Hypertension, Osteoarthritis (OA), Sleep Apnea/CPAP/BIPAP, Thyroid Disorder Additional Past Medical History / Comment(s): Lupus, chronic back and right hip pain, mild sleep apnea, no CPAP use. CANNOT LAY ON RIGHT SIDE. Recent Throat infection/swollen tonsil, on Penicillin. History of Any Multi-Drug Resistant Organisms: None Reported Past Surgical History: Section, Hernia Repair, Orthopedic Surgery Additional Past Surgical History / Comment(s): Bilateral knee growth surgery, right hip surgery, injections for pain. Past Anesthesia/Blood Transfusion Reactions: Postoperative Nausea & Vomiting (PONV) Past Psychological History: Anxiety, Depression Smoking Status: Former smoker Past Alcohol Use History: Occasional Additional Past Alcohol Use History / Comment(s): Quit smoking in 2000, smoked on and off since 18 yrs old, 1- 12 PPD. Past Drug Use History: None Reported - Past Family History Father Family Medical History: Cancer Additional Family Medical History / Comment(s): Throat cancer. Brother(s) Family Medical History: Cancer Additional Family Medical History / Comment(s): Lupus. Sister(s) Family Medical History: Cancer Additional Family Medical History / Comment(s): Bladder cancer. Medications and Allergies Home Medications Medication Instructions Recorded Confirmed Type DULoxetine HCL [Cymbalta] 60 mg PO DAILY 10/06/15 01/21/19 History Levothyroxine Sodium [Synthroid] 175 mcg PO DAILY 10/06/15 01/21/19 History Montelukast Sodium [Singulair] 10 mg PO HS 11/06/16 01/21/19 History Albuterol Sulfate [Proair Hfa] 1 - 2 puff INHALATION Q6HR PRN 01/20/19 01/21/19 History Bisoprolol-Hctz 10-6.25 mg [Ziac 1 tab PO QAM 01/20/19 01/21/19 History 10-6.25 MG] Budesonide/Formoterol Fumarate 2 puff INHALATION BID 01/20/19 01/21/19 History [Symbicort 160-4.5 Mcg Inhaler] Gabapentin [Neurontin] 600 mg PO TID 01/20/19 01/21/19 History Penicillin V Potassium [Pen Vee K] 500 mg PO BID 01/20/19 01/21/19 History traMADol HCL 50 mg PO Q8H 01/20/19 01/21/19 History Allergies Allergy/AdvReac Type Severity Reaction Status Date / Time latex Allergy Rash/Hives Verified 01/21/19 08:10 codeine AdvReac Nausea & Verified 01/21/19 08:10 Vomiting Surgical - Exam - General well developed, well nourished, no distress - Eyes PERRL - ENT normal pinna - Neck no masses - Respiratory normal expansion - Cardiovascular Rhythm: regular - Abdomen Abdomen: soft, non tender Assessment and Plan Assessment: We'll perform screening colonoscopy.
--- NOTE | 2019-01-21 09:37 | P.OP ---
Date of Procedure: 01/21/19 Preoperative Diagnosis: Screening colonoscopy Postoperative Diagnosis: Diverticulosis Rectal polyp Procedure(s) Performed: Colonoscopy Anesthesia: MAC Surgeon: Jose Ortez Pathology: other (Rectal polyp) Condition: stable Disposition: PACU Description of Procedure: The patient's placed on the endoscopy table in the lateral position. She received IV sedation. Digital rectal exam was performed which revealed no ebonized. The flexible colonoscope was then placed patient anus passed throughout the scope was placed into the left colon. The scope could not be advanced due to tortuosity the sigmoid colon. At this point scope was withdrawn. There is diverticular changes of the left and sigmoid colon. Scope was brought back the rectum and a polyp was seen. This removed with a cold forcep. Scope throughout the patient. Patient was scheduled for a barium enema.
[2019-01-21 09:54] VITALS: BP 139/78; PULSE 62
== END 2019-01-21 10:23 | disposition home or self-care (01) ==
LOC: ORWHC2ENDO 07:40
PROVIDERS: ATTEND Surgery
DX: Z12.11 Encounter for screening for malignant neoplasm of colon (principal); K62.1 Rectal polyp; K57.30 Diverticulosis of large intestine without perforation or abscess without bleeding; Q43.8 Other specified congenital malformations of intestine; J45.909 Unspecified asthma, uncomplicated; M79.7 Fibromyalgia; K21.9 Gastro-esophageal reflux disease without esophagitis; E78.5 Hyperlipidemia, unspecified; I10 Essential (primary) hypertension; M19.90 Unspecified osteoarthritis, unspecified site; G47.33 Obstructive sleep apnea (adult) (pediatric); E07.9 Disorder of thyroid, unspecified; M32.9 Systemic lupus erythematosus, unspecified; G89.29 Other chronic pain; M54.9 Dorsalgia, unspecified; M25.551 Pain in right hip; F41.9 Anxiety disorder, unspecified; F32.9 Major depressive disorder, single episode, unspecified; S02.5XXA Fracture of tooth (traumatic), initial encounter for closed fracture; X58.XXXA Exposure to other specified factors, initial encounter; Z87.891 Personal history of nicotine dependence; Z91.040 Latex allergy status; Z88.5 Allergy status to narcotic agent; Z79.899 Other long term (current) drug therapy; Z79.890 Hormone replacement therapy; Z79.891 Long term (current) use of opiate analgesic; Z79.51 Long term (current) use of inhaled steroids; Z80.8 Family history of malignant neoplasm of other organs or systems; Z83.49 Family history of other endocrine, nutritional and metabolic diseases
CPT/HCPCS: 88305; 45380; J1610; J2704

== ENCOUNTER 2019-12-09 08:09 | Emergency (ER) | payer BC, MEDICARE ==
[2019-12-09 08:25] VITALS: RESP 18
[2019-12-09] MEDS ORDERED: ONDANSETRON ODT 4 MG TAB PO STA (09:18)
[2019-12-09] MEDS ORDERED: KETOROLAC 15 MG/ML 1 ML VIAL IM STA (09:28)
--- NOTE | 2019-12-09 09:36 | ED ---
Back Pain HPI - General Chief Complaint: Back Pain/Injury Stated Complaint: fall, vomiting Time Seen by Provider: 12/09/19 08:48 Source: patient Limitations: no limitations - History of Present Illness Initial Comments: Patient is a 64-year-old female, with history of fibromyalgia, asthma, presents emergency Department with complaints of right-sided back pain as well as nausea 3 days. Patient states 3 days ago she was pulling on a dog leash when it let go and she fell backwards onto the grass hitting the back of her head and her upper back. She states she did not lose consciousness. She states after the initial fall, she felt okay. She denied any dizziness at the time. Patient states she was able to eat dinner as normal by evening. Patient states that during the night she woke up vomiting. Patient states over the next 2 days she has felt nauseous and some right-sided mid back pain and discomfort. Patient denies any changes in vision. She states today she came in because the nausea has continued and that her right-sided mid back pain has also increased. She denies any fever, chills. She does admit to a mild headache. She denies any dizziness, chest pain or shortness of breath. She denies any abdominal pain or diarrhea. She denies any urinary complaints. She has no further complaints at this time. Upon arrival to the ER, her vital signs are stable. - Related Data Home Medications Medication Instructions Recorded Confirmed DULoxetine HCL [Cymbalta] 60 mg PO DAILY 10/06/15 01/21/19 Levothyroxine Sodium [Synthroid] 175 mcg PO DAILY 10/06/15 01/21/19 Montelukast Sodium [Singulair] 10 mg PO HS 11/06/16 01/21/19 Albuterol Sulfate [Proair Hfa] 1 - 2 puff INHALATION Q6HR PRN 01/20/19 01/21/19 Bisoprolol-Hctz 10-6.25 mg [Ziac 1 tab PO QAM 01/20/19 01/21/19 10-6.25 MG] Budesonide/Formoterol Fumarate 2 puff INHALATION BID 01/20/19 01/21/19 [Symbicort 160-4.5 Mcg Inhaler] Gabapentin [Neurontin] 600 mg PO TID 01/20/19 01/21/19 Penicillin V Potassium [Pen Vee K] 500 mg PO BID 01/20/19 01/21/19 traMADol HCL 50 mg PO Q8H 01/20/19 01/21/19 Previous Rx's Medication Instructions Recorded Ondansetron Odt [Zofran Odt] 4 mg PO Q8HR PRN #10 tab 12/09/19 Allergies Allergy/AdvReac Type Severity Reaction Status Date / Time latex Allergy Rash/Hives Verified 12/09/19 08:25 codeine AdvReac Nausea & Verified 12/09/19 08:25 Vomiting Review of Systems ROS Statement: Those systems with pertinent positive or pertinent negative responses have been documented in the HPI. ROS Other: All systems not noted in ROS Statement are negative. Past Medical History Past Medical History: Asthma, Fibromyalgia, GERD/Reflux, Hyperlipidemia, Hypertension, Osteoarthritis (OA), Sleep Apnea/CPAP/BIPAP, Thyroid Disorder Additional Past Medical History / Comment(s): Lupus, chronic back and right hip pain, mild sleep apnea, no CPAP use. CANNOT LAY ON RIGHT SIDE. Recent Throat infection/swollen tonsil, on Penicillin. History of Any Multi-Drug Resistant Organisms: None Reported Past Surgical History: Section, Hernia Repair, Orthopedic Surgery Additional Past Surgical History / Comment(s): Bilateral knee growth surgery, right hip surgery, injections for pain. Past Anesthesia/Blood Transfusion Reactions: Postoperative Nausea & Vomiting (PONV) Past Psychological History: Anxiety, Depression Smoking Status: Never smoker Past Alcohol Use History: Occasional Past Drug Use History: None Reported - Past Family History Father Family Medical History: Cancer Additional Family Medical History / Comment(s): Throat cancer. Brother(s) Family Medical History: Cancer Additional Family Medical History / Comment(s): Lupus. Sister(s) Family Medical History: Cancer Additional Family Medical History / Comment(s): Bladder cancer. General Exam - General Exam Comments Initial Comments: GENERAL: Patient is well-developed and well-nourished. Patient is nontoxic and in no acute distress. HEAD: Atraumatic, normocephalic. EYES: Pupils equal round and reactive to light, extraocular movements intact, sclera anicteric, conjunctiva are normal. Eyelids were unremarkable. ENT: TMs normal, nares patent, oropharynx clear without exudates. Moist mucous membranes. NECK: Normal range of motion, supple without lymphadenopathy or JVD. No midline tenderness. LUNGS: Unlabored respirations. Breath sounds clear to auscultation bilaterally and equal. No wheezes rales or rhonchi. HEART: Regular rate and rhythm without murmurs, rubs or gallops. ABDOMEN: Soft, nontender, normoactive bowel sounds. No guarding, no rebound. No masses appreciated. : Deferred MUSCULOSKELETAL: Normal extremities with adequate strength and normal range of motion, no pitting or edema. No clubbing or cyanosis. Patient has mild pain to palpation of the right thoracic area. NEUROLOGICAL: Patient is alert and oriented x 3. Motor and sensory are also intact. Cranial nerves II through XII grossly intact. Symmetrical smile. Normal speech, normal gait. PSYCH: Normal mood, normal affect. SKIN: Warm, Dry, normal turgor, no rashes or lesions noted. Limitations: no limitations Course Vital Signs 12/09/19 12/09/19 12/09/19 08:22 10:00 10:44 Temperature 98.2 F 98.7 F Pulse Rate 78 69 71 Respiratory 18 18 18 Rate Blood Pressure 130/69 118/66 126/72 O2 Sat by Pulse 99 98 98 Oximetry Medical Decision Making - Medical Decision Making Patient is a 64-year-old female here for right sided thoracic discomfort as well as some nausea in the past 2-3 days. Patient lost her balance and fell backwards, there was no LOC. Her exam today is unremarkable, no neural deficits. She does have some mild tenderness with palpation of the right thoracic area. X-rays of the chest and right ribs revealed no acute process, no fractures. I did do a UA to rule out a kidney stone, showed no evidence of hematuria or infection. I also did a CT of the head which showed no acute process. Patient was given Toradol and Zofran in the ER. She states she is feeling improvement. I discussed these findings with her. Patient is most likely having mild nausea secondary to a mild concussion from her fall. I did offer further workup including blood work over patient declined stating she is feeling better. I recommended her continuing to rest at home. I will send her with a starter pack of Zofran as needed for additional nausea. Recommended following up with her PCP. Patient is agreement with this plan of care. She stated that she wants to go home and rest. Strict return parameters were discussed with the patient and she verbalized understanding. Case discussed Dr. Delgado. - Lab Data Lab Results 12/09/19 Range/Units 09:43 Urine Color Colorless Urine Appearance Clear (Clear) Urine pH 5.5 (5.0-8.0) Ur Specific [address] 1.003 (1.001-1.035) Urine Protein Negative (Negative) Urine Glucose (UA) Negative (Negative) Urine Ketones Negative (Negative) Urine Blood Negative (Negative) Urine Nitrite Negative (Negative) Urine Bilirubin Negative (Negative) Urine Urobilinogen <2.0 (<2.0) mg/dL Ur Leukocyte Esterase Negative (Negative) Disposition Clinical Impression: Nausea, Mild concussion Disposition: HOME SELF-CARE Condition: Stable Instructions (If sedation given, give patient instructions): Concussion (ED) Additional Instructions: Please return to the Emergency Department if symptoms worsen or any other concerns. May take Zofran for additional nausea. Limit activity for 2-3 days. Follow up with PCP. Prescriptions: Ondansetron Odt [Zofran Odt] 4 mg PO Q8HR PRN #10 tab PRN Reason: Nausea Is patient prescribed a controlled substance at d/c from ED?: No Referrals: Tj Cage MD [Primary Care Provider] - 1-2 days
--- NOTE | 2019-12-09 09:45 | XR ---
EXAMINATION TYPE: XR ribs RT w pa chest xray DATE OF EXAM: 12/09/2019 COMPARISON: 11/06/2016 TECHNIQUE: Frontal view of the chest and 2 views of the right ribs are submitted. HISTORY: Rib pain FINDINGS: The lungs are clear and there is no pneumothorax, pleural effusion, or focal pneumonia. Limited ins piration. Heart size normal. No failure. Rib cage IMPRESSION: 1. No acute process.
--- NOTE | 2019-12-09 10:00 | CT ---
EXAMINATION TYPE: CT brain wo con DATE OF EXAM: 12/09/2019 COMPARISON: None HISTORY: 64-year-old female Head injury 4 days ago TECHNIQUE: Examination was done in axial plane without intravenous contrast. Coronal and sagittal r econstructions performed. CT DLP: 1040.4 mGycm Automated exposure control for dose reduction was used. FINDINGS: There is no evidence of acute intracranial hemorrhage, acute ischemic changes, mass, mass-effect, or extra-axial fluid collection. There is no effacement of cerebral sulci or basal subarachnoid cister ns. There is no hydrocephalus. There is no midline shift. Thurston-white matter distinction is preserv ed. Slight leftward nasal septal deviation. Paranasal sinuses and mastoid air cells are pneumatized. Orbi ts and globes are intact. IMPRESSION: No acute intracranial abnormality seen.
[2019-12-09 10:06] LABS: Appearance,Urine Clear (Clear); Bilirubin,Urine Negative (Negative); Blood,Urine Negative (Negative); Color,Urine Colorless; Glucose,Urine (UA) Negative (Negative); Ketones,Urine Negative (Negative); Leukocyte Esterase,Urine Negative (Negative); Nitrite,Urine Negative (Negative); PH, Urine 5.5 (5.0-8.0); Protein,Urine Negative (Negative); Specific Gravity,Urine 1.003 (1.001-1.035); Urobilinogen,Urine <2.0 mg/dL (<2.0)
[2019-12-09] MEDS ORDERED: ONDANSETRON 4 MG ODT STARTER PACK 2 TAB BTL PO STA (10:39)
[2019-12-09 10:45] VITALS: BP 126/72; PULSE 71; TEMP 98.7
== END 2019-12-09 10:44 | disposition home or self-care (01) ==
LOC: EC 08:09
DX: S06.0X0A Concussion without loss of consciousness, initial encounter (principal); I10 Essential (primary) hypertension; J45.909 Unspecified asthma, uncomplicated; M54.6 Pain in thoracic spine; G47.30 Sleep apnea, unspecified; E07.9 Disorder of thyroid, unspecified; M19.90 Unspecified osteoarthritis, unspecified site; F41.9 Anxiety disorder, unspecified; F32.9 Major depressive disorder, single episode, unspecified; M79.7 Fibromyalgia; J02.9 Acute pharyngitis, unspecified; Z79.899 Other long term (current) drug therapy; Z79.890 Hormone replacement therapy; Z79.51 Long term (current) use of inhaled steroids; Z88.5 Allergy status to narcotic agent; Z91.040 Latex allergy status; Z99.89 Dependence on other enabling machines and devices; W01.198A Fall on same level from slipping, tripping and stumbling with subsequent striking against other object, initial encounter; Y93.89 Activity, other specified
CPT/HCPCS: 81003; 71101; 70450; 99284; 96372; J1885; S0119; 99285

== ENCOUNTER → 2021-05-29 | Outpatient (CLI) | payer MEDICARE ==
--- NOTE | 2021-05-29 15:24 | CT ---
EXAMINATION TYPE: CT brain wo con DATE OF EXAM: 05/29/2021 COMPARISON: 12/09/19 HISTORY: TIA CT DLP: 1047.[address] of the brain was performed. The ventricles, basal cisterns and sulci overlying the cerebral convexities demonstrate mild enlargem ent. There is no evidence for intracranial hemorrhage or sulcal effacement. There is decreased attenuation about the periventricular white matter and deep white matter of both c erebral hemispheres, compatible with chronic small vessel ischemia. Differential diagnosis does inclu de demyelination. No mass effects are seen.No midline shift. Osseous calvarium is intact. If symptoms persist consider MRI. IMPRESSION: 1. Age related atrophic and chronic small vessel ischemic change without acute intracranial process s een at this time.
--- NOTE | 2021-05-29 16:32 | US ---
EXAMINATION TYPE: US carotid duplex BILAT DATE OF EXAM: 05/29/2021 COMPARISON: NONE CLINICAL HISTORY: G45.9 TIA. TIA EXAM MEASUREMENTS: RIGHT: Peak Systolic Velocity (PSV) cm/sec ----- Right CCA: 74.4 ----- Right ICA: 83.6 ----- Right ECA: 130 ICA/CCA ratio: 1.1 RIGHT: End Diastole cm/sec ----- Right CCA: 22.8 ----- Right ICA: 30.3 ----- Right ECA: 18.3 LEFT: Peak Systolic Velocity (PSV) cm/sec ----- Left CCA: 72.0 ----- Left ICA: 82.8 ----- Left ECA: 87.1 ICA/CCA ratio: 1.2 LEFT: End Diastole cm/sec ----- Left CCA: 20.6 ----- Left ICA: 31.2 ----- Left ECA: 18.3 VERTEBRALS (direction of flow): Right Vertebral: Antegrade Left Vertebral: Antegrade Rhythm: Normal Grayscale, color Doppler, spectral Doppler imaging performed of the carotid arteries. Waveform analys is does not show significant stenosis of the proximal internal carotid arteries by Doppler criteria. No significant stenosis seen IMPRESSION: No hemodynamic significant stenosis of the proximal internal carotid arteries by Doppler criteria, an indirect measurement of carotid stenosis Criteria for Assigning % of Stenosis / Diameter reduction (Estimation based on the indirect measurements of the internal carotid artery velocities (ICA PSV). 1. Normal (no stenosis)=ICA PSV < 125 cm/s: ratio < 2.0: ICA EDV<40 cm/s. 2. Less than 50% stenosis=ICA PSV < 125 cm/s: ratio < 2.0: ICA EDV<40 cm/s. 3. 50 to 69% stenosis=ICA PSV of 125 to 230 cm/s: ration 2.0 ? 4.0: ICA EDV 40-100 cm/s. 4. Greater than 70% stenosis to near occlusion= ICA PSV > 230 cm/s: ratio > 4.0: ICA EDV > 100 cm/s. 5. Near occlusion= ICA PSV velocities may be low or undetectable: variable ratio and ICA EDV. 6. Total occlusion=unable to detect flow.
--- NOTE | 2021-05-30 09:00 | ECHOF ---
Referral Reason:G45.9 TIA MEASUREMENTS -------- HEIGHT: 170.2 cm WEIGHT: 93.4 kg BP: IVSd: 1.0 cm (0.6 - 1.1) LVIDd: 4.3 cm (3.9 - 5.3) LVPWd: 1.0 cm (0.6 - 1.1) IVSs: 1.4 cm LVIDs: 2.1 cm LVPWs: 1.7 cm Ao Diam: 3.1 cm (2.0 - 3.7) AV Cusp: 1.8 cm (1.5 - 2.6) LA Diam: 2.5 cm (2.7 - 3.8) MV EXCURSION: 16.659 mm (> 18.000) MV EF SLOPE: 131 mm/s (70 - 150) EPSS: 0.8 cm MV E Deyvi: 0.52 m/s MV DecT: 231 ms MV A Deyvi: 0.83 m/s MV E/A Ratio: 0.62 RAP: 5.00 mmHg RVSP: 9.64 mmHg FINDINGS -------- This was a technically adequate study. The left ventricular size is normal. Left ventricular wall thickness is normal. Overall left vent ricular systolic function is normal with, an EF between 55 - 60 %. The right ventricle is normal in size. The left atrial size is normal. The right atrial size is normal. The aortic valve is trileaflet and appears structurally normal. The mitral valve is normal. There is trace mitral regurgitation. The tricuspid valve appears structurally normal. Trace tricuspid regurgitation present. Right warren tricular systolic pressure is normal at < 35 mmHg. There is no pulmonic regurgitation present. The aortic root size is normal. CONCLUSIONS -------- 1. The left ventricular size is normal. 2. Left ventricular wall thickness is normal. 3. Overall left ventricular systolic function is normal with, an EF between 55 - 60 %. 4. There is trace mitral regurgitation. 5. Trace tricuspid regurgitation present. LIFE ENRICHMENT MANAGER: Shaunna Vargas [facility]
== END | disposition home or self-care (01) ==
LOC: RADECHMAIN 13:39
PROVIDERS: ATTEND Family Medicine
DX: I67.82 Cerebral ischemia (principal); G31.89 Other specified degenerative diseases of nervous system; I08.1 Rheumatic disorders of both mitral and tricuspid valves
CPT/HCPCS: 70450; 93306; 93880